=== PATIENT | female | born 1945 | race Caucasian/White ===

== ENCOUNTER 2016-04-17 07:25 | Day surgery (SDC) | payer OTHER ==
[2016-04-12 12:42] VITALS: BMI 25.2
[2016-04-17] MEDS ORDERED: LIDOCAINE 1%-EPI 1:100,000 30 ML MDV IJ ONE (07:32)
[2016-04-17] MEDS ORDERED: BUPIVACAINE HCL/PF 0.5% (5MG/ML) 10 ML VIAL ONE (07:32)
[2016-04-17] MEDS ORDERED: BACITRACIN 3.5 GM OPTHALMIC OINT TUBE ONE (07:32)
[2016-04-17] MEDS ORDERED: POVIDONE-IODINE 5% OPHTHALMIC PREP 30 ML SOLUTION ONE (09:00)
[2016-04-17] MEDS ORDERED: ONDANSETRON 4 MG/2 ML VIAL ONE (09:53)
[2016-04-17] MEDS ORDERED: ceFAZolin SODIUM 1 GM VIAL ONE (09:53)
[2016-04-17] MEDS ORDERED: ACETAMINOPHEN 500 MG TABLET (FP) PO PRN (10:23)
[2016-04-17] MEDS ORDERED: PROPOFOL 20 ML ONE ×2 (10:34)
[2016-04-17] MEDS ORDERED: LACTATED RINGERS SOLUTION 1,000 ML IV SCH (11:30)
[2016-04-17] MEDS ORDERED: PROMETHAZINE HCL 25 MG/1 ML VIAL IVPUSH PRN (11:34)
[2016-04-17] MEDS ORDERED: oxyCODONE HCL 5 MG TABLET PO PRN (11:34)
[2016-04-17] MEDS ORDERED: ONDANSETRON 4 MG/2 ML VIAL IVPUSH PRN (11:34)
[2016-04-17 13:12] VITALS: BP 135/68; PULSE 62; TEMP 98
--- NOTE | 2016-04-18 11:59 | OP ---
DATE OF OPERATION: 04/17/2016 PREOPERATIVE DIAGNOSIS: Dermatolysis bilateral upper lids, visual obstruction. POSTOPERATIVE DIAGNOSIS: Dermatolysis bilateral upper lids, visual obstruction. PROCEDURE: Functional blepharoplasty of bilateral upper lids. SURGEON: Renny Muro MD ANESTHESIA: Local with sedation. COMPLICATIONS: None. ESTIMATED BLOOD LOSS: 1-2 mL. OPERATIVE REPORT: The patient was brought to the operating room and placed on the operating room table by anesthesia. Tetracaine was placed in both eyes. A timeout was performed. Lid crease was symmetrically marked on both upper lids, 10-mm below the lash line. It was checked with a caliper to be symmetric nasally and temporally. Leaving 11 mm below the brow, the amount of skin that can be safely removed was marked with the superior edge of the ellipse and then this was pinched with forceps, demonstrating only mild lash eversion. The patient was given intravenous sedation and 2% Xylocaine with 1:100,000 Epinephrine was injected subcutaneously in both upper lids for a total of 2 mL to 3 mL. The patient was prepped and draped in the usual sterile fashion for both eyes. The creases were symmetrically incised and the superior ellipses were incised. The skin was removed with a Taylor needle. Hemostasis was achieved with the Taylor needle. Antibiotic irrigation was used throughout the case. A row of was placed at the inferior edge of the incision to re-accentuate the lid crease. The orbicularis was now opened nasally with a Taylor needle and gentle splaying with Mirza scissors demonstrated this extremely prominent nasal fat pad, which was pushing the skin down towards the eyelashes and impeding repositioning of the lower eyelid. Therefore, the fat was cauterized to shrink it somewhat in the medial fat pad bilaterally without excision. Antibiotic irrigation was used. Excellent hemostasis was evidenced and the wounds were closed with a combination of running and interrupted 6-0 nylon sutures across the eyelids. Bacitracin was placed on the sutures and the patient was taken to the recovery room in stable condition. RENNY MURO M.D. [id number]
--- NOTE | 2016-04-19 12:15 | PATH ---
Surgical Pathology Report Patient Name: HEATHER SANTACRUZ [facility]. Rec. #: [id number] /Age/Gender: 1945 (Age: 70) / F Account: [id number] Location: [facility] Taken: 04/17/2016 Received: 04/17/2016 Reported: 04/19/2016 Physicians: Jhonny Hays Specimen(s) Received A: RIGHT UPPER EYELID SKIN B: LEFT UPPER EYELID SKIN Clinical History Dermatoptosis bilateral upper eyelid Final Diagnosis A. SKIN, RIGHT UPPER EYELID, EXCISION: UNREMARKABLE SKIN. B. SKIN, LEFT UPPER EYELID, EXCISION: UNREMARKABLE SKIN. Electronically Signed Phillip Childs M.D. Gross Description A. Received in formalin, labeled "right upper eyelid skin," is a 4.0 x 0.3 cm mora, unoriented skin shave. The epidermal surface is unremarkable. The base is inked green and the specimen is submitted in toto in one cassette. B. Received in formalin, labeled "left upper eyelid skin," is a 4.0 x 0.3 cm mora, unoriented skin shave. The epidermal surface is unremarkable. The base is inked green and the specimen is submitted in toto in one cassette. /04/18/2016 saudi04/18/2016
== END 2016-04-17 13:05 | disposition home or self-care (01) ==
LOC: FASU 07:25
PROVIDERS: ATTEND Ophthalmology
PROC: 08SN0ZZ Reposition Right Upper Eyelid, Open Approach (ICD-10-PCS; 2016-04-17)
PROC: 08SP0ZZ Reposition Left Upper Eyelid, Open Approach (ICD-10-PCS; principal; 2016-04-17 10:15)
DX: H02.34 Blepharochalasis left upper eyelid (principal); H53.10 Unspecified subjective visual disturbances
CPT/HCPCS: 88302-TC; 94760